=== PATIENT | female | born 1955 | race African-American/Black ===

== ENCOUNTER → 2016-09-10 | Outpatient (CLI) | payer MEDICARE ==
[~2016-09-10] MED LIST: ASPI-13 PO; CLON0.2T PO; CLOP75TA19 PO; FENO145T20 PO; FURO20TA6 PO; INSU100C8 SQ; INSU100V12 SQ; LABE300T PO; METF-200 PO; MULT1CAP47 PO; POTA-81 PO; POTA20PA17 PO; [UNRECOGNIZED DRUG - CODE] PO
== END ==
LOC: SS 20:00
PROVIDERS: ATTEND Internal Medicine
DX: G47.33 Obstructive sleep apnea (adult) (pediatric) (principal); G47.10 Hypersomnia, unspecified

== ENCOUNTER 2016-10-10 12:53 | Outpatient (CLI) | payer MEDICARE ==
[2016-10-10] VITALS (12 sets, daily range): BP systolic 142–206; BP diastolic 77–112; PULSE 64–84; RESP 15–17; TEMP 97.1–97.6; O2SAT 93–99; Ht 167.6 cm; Wt 109.3 kg
[~2016-10-10] VITALS: Ht 167.6 cm; Wt 109.3 kg
[~2016-10-10 12:53] MED LIST changes: +ASPI-557 PO; -CLON0.2T PO
[2016-10-10] MEDS ORDERED: CARV6.252 PO (13:33)
[2016-10-10] MEDS ORDERED: ASPI325T PO (13:33)
[2016-10-10] MEDS ORDERED: CLON0.3T PO (13:33)
[2016-10-10] MEDS ORDERED: BUME1TAB17 PO (13:33)
[2016-10-10] MEDS ORDERED: LISI40TA4 PO (13:33)
[2016-10-10] MEDS ORDERED: ALLO300T2 PO (13:33)
[2016-10-10] MEDS ORDERED: ALBU8.5H INH (13:33)
[2016-10-10] MEDS ORDERED: CALC0.25 PO (13:33)
[2016-10-10 13:43] LABS: BASOPHILS # (AUTO) 0.1 T/MM3 (0-0.2); BASOPHILS % (AUTO) 1.3 % (0-2); EOSINOPHILS # (AUTO) 0.1 T/MM3 (0-0.5); EOSINOPHILS % (AUTO) 2.3 % (0-4); HCT - HEMATOCRIT 39.5 % (36-46); IMMATURE GRANULOCYTE # (AUTO) 0.01 T/MM3 (0.00-0.03); IMMATURE GRANULOCYTE % (AUTO) 0.2 % (0.0-0.5); LYMPHOCYTES % (AUTO) 36.3 % (23-45); MEAN CORPUSCULAR HGB CONC(MCHC 32.9 GM/DL (31-37); MEAN CORPUSCULAR VOLUME 94.3 UM3 (80-100); MEAN PLATELET VOLUME 10.4 UM3 (9.4-12.4); MONOCYTES # (AUTO) 0.4 T/MM3 (0-0.8); NEUTROPHILS #(AUTO)-ABSOLUTE 2.9 T/MM3 (1.8-7.7); NEUTROPHILS % (AUTO) 52.9 % (33-66); RED BLOOD COUNT 4.19 M/MM3 (4.00-5.20); WBC - WHITE BLOOD COUNT 5.5 T/MM3 (4.5-11.0)
[2016-10-10 13:45] LABS: ANION GAP 11 MEQ/L (5-15); BUN/CREATININE RATIO 19 RATIO (6-26); CALCIUM 9.4 MG/DL (8.4-10.2); CHLORIDE 105 MEQ/L (98-107); CO2 - CARBON DIOXIDE 28 MEQ/L (22-30); CREATININE 1.3 MG/DL (0.7-1.2); GLOMERULAR FILTRATION RATE 41; GLUCOSE 106 MG/DL (65-110); SODIUM 144 MEQ/L (134-144)
--- NOTE | 2016-10-10 13:45 | NUR ---
ARRIVAL UPDATE PT ARRIVES AT 1300. PT IS A&OX3, SHE INSTRUCTED TO GET INTO A GOWN, EKG, IV AND BLOOD WORK IS DONE, ADMISSION QUESTIONS ARE ASKED, AND CONSENT FORMED IS SIGNED.
[2016-10-10] MEDS: NORMAL SALINE 1,000 ML IV SCH ×2 (13:57→19:05)
--- NOTE | 2016-10-10 14:07 | NUR ---
CM CM IN TO VISIT PATIENT, SHE IS A&O. FAMILY IS PRESENT AT BEDSIDE. PATIENT PLANS TO RETURN HOME, DENIES ANY DISCHARGE NEEDS. CM CONTACT INFORMATION PROVIDED. STACIE ERWIN. Addendum: 10/10/16 at 1408 by SHAHRAM SELF RN Amended: Links added.
[2016-10-10] MEDS ORDERED: CEFAZOLIN 1 GRAM INJECTION ONE ×2 (16:59→17:01)
[2016-10-10] MEDS ORDERED: WATER FOR INJECTION 20 ML ONE (16:59)
[2016-10-10] MEDS ORDERED: SALINE FLUSH *Sterile Field* 10ml SYRINGE ONE (17:00)
[2016-10-10] MEDS ORDERED: FENTANYL 100mcg/2ml INJECTION ONE (17:00)
[2016-10-10] MEDS ORDERED: MIDAZOLAM 2mg/2ml INJECTION ONE ×2 (17:00→17:51)
[2016-10-10] MEDS ORDERED: BACITRACIN INJ. 50,000 UNITS VL ONE (17:01)
[2016-10-10] MEDS ORDERED: LIDOCAINE 1% (10mg/ml) 30ml SDV ONE (17:01)
--- NOTE | 2016-10-10 17:18 | NUR ---
UPDATE PT HEADING TO SURGERY AT THIS TIME BY CART.
[2016-10-10] MEDS ORDERED: MAG-AL + SIM LIQUID 30 ML UDC PO PRN (18:15)
[2016-10-10] MEDS ORDERED: BISACODYL 5 MG E.C. TABLET PO PRN (18:15)
[2016-10-10] MEDS ORDERED: ALBUTEROL INH.SOLN. 2.5mg/3ml (0.083%) Neb. AEROSOL PRN (18:15)
[2016-10-10] MEDS ORDERED: ACETAMINOPHEN 325 MG TABLET PO PRN (18:15)
--- NOTE | 2016-10-10 18:40 | NUR ---
Update Pt arrived from surgery at this time. Pt is A&OX3, resp rate even and non labored. Incision site to chest is dry and intact. Pts initial BP WNL. will continue to monitor.
[2016-10-10] MEDS: CEFAZOLIN 1 G in NORMAL SALINE 100 ML IV SCH (19:05)
[2016-10-10] MEDS: CLONIDINE 0.3 MG PO SCH (20:17)
[2016-10-10] MEDS ORDERED: BUMETANIDE 1 MG TABLET PO SCH (21:00)
[2016-10-10] MEDS: POTASSIUM CHLORIDE 20 MEQ/15 ML PO SCH (21:00)
--- NOTE | 2016-10-10 21:00 | NUR ---
STATUS PT BLOOD PRESSURE ELEVATED AT THIS TIME, PT RATES PAIN A 10/10. PRN PAIN MEDICATION GIVEN. PT REFUSES TO TAKE OUR LEVIMIR AT THIS TIME, STATES SHE WILL TAKE IT TOMORROW AND WILL REPORT ANY CHANGES IN HOW SHE FEELS REGARDING BLOOD SUGAR. PT ALSO STATES THAT SHE NORMALLY CHECKS HER BGM AT HOME BUT REFUSES TO DO SO IN THE HOSPITAL. WILL CONTINUE TO MONITOR.
[2016-10-10] MEDS: OXYCODONE/APAP 5mg/325mg TABLET PO PRN (21:04)
--- NOTE | 2016-10-10 21:55 | NUR ---
UPDATE PT BLOOD PRESSURE WITHIN NORMAL LIMITS FOR HER AT THIS TIME. PT IS RESTING AND DENIES PAIN AT THIS TIME WELL. WILL CONTINUE TO MONITOR.
[2016-10-10] MEDS ORDERED: INSULIN DETEMIR 100 UNIT/ML SQ SCH (22:00)
[2016-10-11] MEDS: CEFAZOLIN 1 G in NORMAL SALINE 100 ML IV SCH (02:40)
[2016-10-11 04:00] VITALS: BP 95/66; PULSE 72; RESP 20; TEMP 97.6; O2SAT 96
[2016-10-11] MEDS: OXYCODONE/APAP 5mg/325mg TABLET PO PRN (04:05)
[2016-10-11 04:49] VITALS: BP 155/98; PULSE 67; RESP 18; TEMP 97.8; O2SAT 93
[2016-10-11 07:20] VITALS: BP 149/76; PULSE 63; RESP 22; TEMP 96.7; O2SAT 99
[2016-10-11 07:21] VITALS: PULSE 63; RESP 22
[2016-10-11] MEDS ORDERED: CARVEDILOL 6.25 MG TABLET PO SCH (08:00)
[2016-10-11] MEDS ORDERED: CARVEDILOL 3.125 MG PO SCH (08:00)
[2016-10-11] MEDS: CLONIDINE 0.3 MG PO SCH (08:29)
[2016-10-11] MEDS: POTASSIUM CHLORIDE 20 MEQ/15 ML PO SCH (08:29)
[2016-10-11] MEDS ORDERED: OXYC1TAB8 PO (08:37)
[2016-10-11] MEDS ORDERED: MINO100C43 PO (08:37)
[2016-10-11] MEDS ORDERED: POTASSIUM CHLORIDE PO SCH (08:46)
[2016-10-11] MEDS ORDERED: CALCITRIOL 0.25 MCG PO SCH (09:00)
[2016-10-11] MEDS ORDERED: --POM--ASPIRIN 325 MG TABLET PO SCH (09:00)
[2016-10-11] MEDS ORDERED: --POM--ALLOPURINOL 300 MG TABLET PO SCH (09:00)
[2016-10-11] MEDS ORDERED: --POM--LISINOPRIL 40 MG TABLET PO SCH (09:00)
[2016-10-11] MEDS ORDERED: MINOCYCLINE 100 MG CAPSULE PO SCH (09:00)
[2016-10-11] MEDS ORDERED: --POM--BUMETANIDE 1 MG TABLET PO SCH (09:00)
--- NOTE | 2016-10-11 09:11 | DI ---
Indication: ITS.REASON: ppm Procedure: CHEST 1 VIEW: Encounter: Initial Comparison: 08/16/2016 Technique: A single portable AP chest radiograph was obtained. Findings: Life support devices: Interval placement of a left pectoral dual-chamber pacer/ICD device. Lungs and airways: Normal lung volumes. Redemonstration of bullous emphysematous changes within the medial left lung apex. No focal airspace consolidation. Pulmonary vascular and interstitial prominence. Pleura: No pleural effusion or definite pneumothorax. Heart and mediastinum: Cardiomegaly. Aortic atherosclerosis. Osseous structures and soft tissues: No acute osseous abnormality is seen. Impression: 1. Interval placement of a left pectoral dual-chamber pacer/ICD device. 2. Redemonstration of bullous emphysematous changes within the medial left lung apex without pneumothorax identified. 3. Cardiomegaly and aortic atherosclerosis with pulmonary vascular and interstitial prominence suggesting mild congestive changes and interstitial edema. .
--- NOTE | 2016-10-11 09:11 | DI ---
Indication: ITS.REASON: ppm Procedure: CHEST, PA LATERAL: Encounter: Subsequent Comparison: 10/10/2016, 08/16/2016 Technique: PA and lateral radiographs of the chest were obtained. Findings: Life support devices: Unchanged left pectoral dual-chamber pacer/ICD device. Lungs and airways: Normal lung volumes. No focal airspace consolidation. Pulmonary vascular and interstitial prominence. Pleura: Bullous emphysematous changes again seen within the medial left lung apex with no definite pleural effusion or pneumothorax appreciated. Heart and mediastinum: Cardiomegaly. Aortic atherosclerosis. Osseous structures and soft tissues: No acute osseous abnormality is seen. Degenerative changes of the shoulders and thoracic spine. Impression: 1. Unchanged left pectoral dual-chamber pacer/ICD device. 2. Redemonstration of bullous emphysematous changes within the medial left lung apex with no definite pneumothorax appreciated. 3. Cardiomegaly and aortic atherosclerosis with pulmonary vascular and interstitial prominence suggesting mild congestive changes/interstitial edema. .
[2016-10-11] MEDS: NORMAL SALINE 1,000 ML IV SCH (09:40)
--- NOTE | 2016-10-11 11:23 | NUR ---
Discharge Pt discharged at this time via wheelchair through the ER entrance in the company of an adult. IV catheter DC'd prior to by SN Tha. Wristband removed. Pts home medications were returned to Pt. Prescription for pain medication was given to Pt to take to preferred pharmacy. Sling in place to the left arm at the time of discharge. Discharge packet and instructions given to Pt. This RN discussed activity, diet, restrictions, medications, incision care, and follow up appt with Pt. Pt verbalized understanding.
[2016-10-11] MEDS ORDERED: INSULIN ASPART 100 UNIT/ML SQ SCH ×2 (12:00→17:30)
--- NOTE | 2016-10-12 15:41 | NUR ---
CM CM LVM
--- NOTE | 2016-10-13 16:07 | NUR ---
CM CM LVM
== END 2016-10-11 11:23 | disposition home or self-care (01) ==
LOC: CATH 12:53 → SRG 12:56 → CATH 10-11 11:23
PROVIDERS: ATTEND Internal Medicine Cardiovascular Disease
DX: I42.9 Cardiomyopathy, unspecified (principal); I25.10 Atherosclerotic heart disease of native coronary artery without angina pectoris; J81.1 Chronic pulmonary edema; I35.1 Nonrheumatic aortic (valve) insufficiency; I10 Essential (primary) hypertension; E78.2 Mixed hyperlipidemia; E11.9 Type 2 diabetes mellitus without complications; F17.220 Nicotine dependence, chewing tobacco, uncomplicated; Z79.1 Long term (current) use of non-steroidal anti-inflammatories (NSAID); Z79.82 Long term (current) use of aspirin; Z79.4 Long term (current) use of insulin; Z79.899 Other long term (current) drug therapy; Z95.5 Presence of coronary angioplasty implant and graft
CPT/HCPCS: 33249; 71010; 71020; 80048; 85025; 93005; 93641; A9270; C1721; C1895; C1898; J0690; J2250; J3010; J7030; J7050; L3650

== ENCOUNTER → 2016-11-22 | Outpatient (CLI) | payer MEDICARE ==
[~2016-11-22] MED LIST changes: +ALBU8.5H INH; +ALLO300T2 PO; -ASPI-13 PO; -ASPI-557 PO; +ASPI325T PO; +BUME1TAB17 PO; +CALC0.25 PO; +CARV6.252 PO; +CLON0.3T PO; -CLOP75TA19 PO; -FENO145T20 PO; -FURO20TA6 PO; -LABE300T PO; +LISI40TA4 PO; -METF-200 PO; +MINO100C43 PO; +OXYC1TAB8 PO; -POTA-81 PO; -[UNRECOGNIZED DRUG - CODE] PO
[2016-11-22 09:29] LABS: HCT - HEMATOCRIT 38.3 % (36-46); HGB - HEMOGLOBIN 12.7 GM/DL (12-16); MEAN CORPUSCULAR HGB 30.3 UUG (26-34); MEAN CORPUSCULAR HGB CONC(MCHC 33.2 GM/DL (31-37); MEAN CORPUSCULAR VOLUME 91.4 UM3 (80-100); MEAN PLATELET VOLUME 9.9 UM3 (9.4-12.4); RED BLOOD COUNT 4.19 M/MM3 (4.00-5.20); WBC - WHITE BLOOD COUNT 6.7 T/MM3 (4.5-11.0)
[2016-11-22 09:37] LABS: ANION GAP 14 MEQ/L (5-15); BUN/CREATININE RATIO 21 RATIO (6-26); CALCIUM 9.3 MG/DL (8.4-10.2); CHLORIDE 101 MEQ/L (98-107); CO2 - CARBON DIOXIDE 29 MEQ/L (22-30); CREATININE 1.1 MG/DL (0.7-1.2); GLOMERULAR FILTRATION RATE 50; GLUCOSE 233 MG/DL (65-110); POTASSIUM 3.6 MEQ/L (3.6-5); SODIUM 144 MEQ/L (134-144)
[2016-11-22 09:45] LABS: PROBNP 13000 PG/ML (0-175)
[2016-11-22 09:58] LABS: BASOPHILS # (MANUAL) 0.1 T/MM3 (0-0.2); EOSINOPHILS # (MANUAL) 0.1 T/MM3 (0-0.5); LYMPHOCYTES # (MANUAL) 1.2 T/MM3 (1-4.8); MONOCYTES # (MANUAL) 0.7 T/MM3 (0-0.8); NEUTROPHILS #(MANUAL)-ABSOLUTE 4.6 T/MM3 (1.8-7.7); TOTAL CELLS COUNTED 100 %
--- NOTE | 2016-11-22 09:58 | DI ---
INDICATION: ITS.REASON: R06.02 Shortness of breath PROCEDURE: CHEST 2-VIEWS UPRIGHT (PA \T\ LAT) Encounter: Initial COMPARISON: October 11, 2016 FINDINGS: Bullous emphysema again noted in the medial left apex. Left cardiac pacemaker defibrillator is stable in position. Chronically increased lung markings in the right lung are again seen. No pneumothorax or consolidative pneumonia. No pleural effusion appreciated. Cardiac silhouette remains moderately enlarged. Mediastinal contours are stable. Impression: No pneumonia. Chronically increased markings in the right lung could represent chronic mild pulmonary edema. .
== END ==
LOC: IMA 09:12
PROVIDERS: ATTEND Internal Medicine
DX: R06.02 Shortness of breath (principal); R91.8 Other nonspecific abnormal finding of lung field
CPT/HCPCS: 36415; 80048; 83880; 84145; 85007; 85027

== ENCOUNTER 2017-05-17 14:41 | Inpatient (IN) ==
[2017-05-17 15:06] VITALS: BMI 40.9
[2017-05-17] MEDS ORDERED: SALINE FLUSH 10ml SYRINGE IV PRN (15:12)
[2017-05-17] MEDS ORDERED: BUMETANIDE 2.5mg/10ml INJECTION IVP ONE (15:19)
[2017-05-17] MEDS: BUMETANIDE DRIP 25 MG in RTU-SALINE 100 ML IV SCH (16:32)
--- OUTSIDE RECORDS SUMMARY | 2017-05-17 16:32 | External Medical Summary ---
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 Problem Mixed hyperlipidemia 272.2 Active Assessment Hypopotassemia 276.8 Active Problem Congestive heart failure, 428.0 Active unspecified Problem Hypertension, benign 401.1 Active Medications Medication Code Code Instructions Start End Date Status Dosage [place] [address]-03 100 UNIT/ML November 03, Active 20 units -05 Subcutaneous 2013 [place] [address]-35 10 MCG Vaginal Mar 10, Active 1 tablet 76-03 Two times a Week 2013 Tricor NDC 19040-55 145 MG Orally Active 1 tablet 23-90 Once a day Lovastatin NDC 82397-92 40 MG Orally Active 2 tablet 28-06 Once a day with a meal Metformin HCl NDC 94058-57 500 MG Orally Active 1 tablet 48-01 Twice a day with meals Lisinopril NDC 60479-59 40 MG Orally Active 1 tablet 70-01 Once a day Plavix NDC 70916-43 75 MG Orally Active 1 tablet 03-99 Once a day Verapamil HCl CR NDC 34862-96 240 MG Orally Active 1 tablet in 80-00 Once a day the morning with food Lopressor NDC 10276-61 50 MG Orally Active 1 tablet 58-05 Once a day Labetalol HCl NDC 51991-00 200 MG Orally Active as directed 65-00 BID Furosemide NDC 25400-00 160 mg Orally Active 1 tablet 75-32 daily Polyethylene NDC 89545-37 3350 U orally Active as directed Glycol 09-05 daily prn constipation Aleve NDC 48590-72 Orally PRN Active 1 tablet as 80-16 [place] [address]-16 100 UNIT/ML Active 7 units at 07-12 Subcutaneous lunch, 5 units at supper Procedures Procedure Coding System Code Date COMPREHENSIVE METABOLIC PANEL CPT-4 65580 May 26, 2014 Vital Signs Date/Time: May 14, 2014 Height 66 inches Weight 231.12 lbs Temperature 98.2 F Blood Pressure Diastolic 84 mm Hg Blood Pressure Systolic 158 mm Hg Cardiac Monitoring Heart Rate 92 Beats per Minute BMI 37.30 Index Respiratory Rate 20 per Minute Results Name Result Date Reference Range Unit Comprehensive Metabolic Panel (CMP) Summary Purpose [employer] Submission
--- OUTSIDE RECORDS SUMMARY | 2017-05-17 16:32 | External Medical Summary ---
:1955 Author Organization [employer] Care Team Providers Name Role Phone Keturah Francois Provider Role Unavailable Allergies No Known Allergies Problems Problem Type Condition Code Onset Dates Condition Status Problem Diabetes mellitus without mention of 250.02 Active complication, type II or unspecified type, uncontrolled Problem Coronary atherosclerosis of [place] 414.01 Active coronary artery Problem Postmenopausal atrophic vaginitis 627.3 Active Problem Mixed hyperlipidemia 272.2 Active Problem Proteinuria 791.0 Active Problem Congestive heart failure, 428.0 Active unspecified Problem Hypertension, benign 401.1 Active Medications No Known Medications Results No Known Results Summary Purpose [employer] Submission
--- OUTSIDE RECORDS SUMMARY | 2017-05-17 16:32 | External Medical Summary ---
:1955 Author Organization [employer] Care Team Providers Name Role Phone Keturah Francois Provider Role Unavailable Allergies, Adverse Reactions, Alerts Substance Reaction Event Type Bactrim hives Drug Allergy almonds Info Not Available Non Drug Allergy brazil nuts Info Not Available Non Drug Allergy Problems Problem Type Condition ICD-9 Code Onset Dates Condition Status Assessment Congestive heart failure, 428.0 Active unspecified Assessment Diabetes mellitus without 250.02 Active mention of complication, type II or unspecified type, uncontrolled Assessment Coronary atherosclerosis of 414.01 Active [place] coronary artery Problem Diabetes mellitus without 250.02 Active mention of complication, type II or unspecified type, uncontrolled Problem Coronary atherosclerosis of 414.01 Active [place] coronary artery Problem 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 Problem Mixed hyperlipidemia 272.2 Active Problem Proteinuria 791.0 Active Problem Congestive heart failure, 428.0 Active unspecified Problem Hypertension, benign 401.1 Active Assessment Other acquired deformity of toe 735.8 Active Assessment Corns and callosities 700 Active Assessment Mixed hyperlipidemia 272.2 Active Assessment Hypertension, benign 401.1 Active Medications Medication Code Code Instructions Start End Date Status Dosage System Date NovoLog [facility] 19121-89 100 UNIT/ML 7 units at 01-11 Subcutaneous lunch, 5 [place] [address]-49 Orally PRN 1 tablet as 00-25 [place] [address]-14 500 MG Orally 1 tablet 48-01 Twice a day with meals Plavix NDC 52311-68 75 MG Orally 1 tablet 03-99 [place] [address]-13 300 MG Orally as directed 66-60 [place] [address]-86 40 MG Orally 1 tablet 70-01 Once a day Clonidine HCl [facility] 14796-81 0.1 MG Orally 1 tablet at 27-10 [place] [address]-57 40 MG Orally 2 tablet 28-06 Once a day with a meal Levemir Flexpen [facility] 34274-74 100 UNIT/ML March 24, 30 units 39-10 Subcutaneous qhs 2014 Potassium [facility] 78195-27 20 MEQ Orally Dec , Sept 20, 1 packet Chloride 56-01 Once a day 2013 2014 Furosemide [facility] 79993-36 80 MG Orally 1 tablet 07-26 [place] [address]-45 3350 U orally as directed Glycol 09- daily prn constipation NovoLog Flexpen [facility] 59951-73 100 UNIT/ML September 22 units 39-10 Subcutaneous BID 2014 Vagifem [facility] 08662-98 10 MCG Vaginal Mar 10, tablet 76-03 Two times a Week 2013 Procedures Procedure Coding System Code Date OFFICE VISIT, EST-MOD. COMPLEXITY (25 MIN) CPT-4 67604 September 22, 2014 [facility] visit Established Patient CPT-4 G0467 September 22, 2014 Vital Signs Date/Time: September 22, 2014 Height 66 in Weight 231.8 lbs Temperature 98.5 F Blood Pressure Diastolic 76 mm Hg Blood Pressure Systolic 132 mm Hg Cardiac Monitoring Heart Rate 78 /min BMI 37.41 Index Respiratory Rate 20 /min Results No Known Results Summary Purpose [employer]ClinicalWorks Submission
--- OUTSIDE RECORDS SUMMARY | 2017-05-17 16:32 | External Medical Summary ---
:1955 Author Organization [facility] [facility] Care Team Providers Name Role Phone Mirna Celis Provider Role Unavailable Allergies No Known Allergies Problems Problem Type Condition Code Onset Dates Condition Status Problem Proteinuria 791.0 Active Problem Hypertension, benign 401.1 Active Problem Mixed hyperlipidemia 272.2 Active Problem Atherosclerotic heart disease of I25.10 Active [place] coronary artery without angina pectoris Problem Edema, unspecified R60.9 Active Problem Tobacco use disorder 305.1 Active Problem Unspecified atherosclerosis of I70.209 Active [place] arteries of extremities, unspecified extremity Problem CKD (chronic kidney disease) stage N18.3 Active 3, GFR 30-59 ml/min Problem Coronary atherosclerosis of [place] 414.01 Active coronary artery Problem Congestive heart failure, 428.0 Active unspecified Problem Postmenopausal atrophic vaginitis 627.3 Active Problem Diabetes mellitus without mention 250.02 Active of complication, type II or unspecified type, uncontrolled Problem Nicotine dependence, unspecified, F17.200 Active uncomplicated Problem Postmenopausal atrophic vaginitis N95.2 Active Problem Other hammer toe(s) (acquired), M20.40 Active unspecified foot Problem Corns and callosities L84 Active Problem Essential (primary) hypertension I10 Active Problem 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
--- OUTSIDE RECORDS SUMMARY | 2017-05-17 16:32 | External Medical Summary ---
:1955 Author Organization [employer] Care Team Providers Name Role Phone Lalita, Mirna Provider Role Unavailable Allergies, Adverse Reactions, Alerts Substance Reaction Event Type Bactrim hives Drug Allergy almonds Info Not Available Non Drug Allergy brazil nuts Info Not Available Non Drug Allergy Problems Problem Type Condition ICD-9 Code Onset Dates Condition Status Assessment Coronary atherosclerosis of 414.01 Active [place] coronary artery Problem Proteinuria 791.0 Active Assessment Diabetes mellitus without 250.02 Active mention of complication, type II or unspecified type, uncontrolled Problem 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 Problem Diabetes mellitus without 250.02 Active mention of complication, type II or unspecified type, uncontrolled Problem Tobacco use disorder 305.1 Active Problem Hypertension, benign 401.1 Active Problem Mixed hyperlipidemia 272.2 Active Problem Coronary atherosclerosis of 414.01 Active [place] coronary artery Problem Congestive heart failure, 428.0 Active unspecified Assessment Colon cancer screening V76.51 Active Assessment Mixed hyperlipidemia 272.2 Active Assessment Other screening breast V76.19 Active examination Assessment Hypertension, benign 401.1 Active Assessment Impacted cerumen 380.4 Active Assessment Congestive heart failure, 428.0 Active unspecified Medications Medication Code Code Instructions Start End Date Status Dosage System Date Metformin HCl [facility] 44455-51 500 MG Orally 1 tablet 48-01 Twice a day with meals Potassium [facility] 34653-82 20 MEQ Orally Jun 02Mar 20, 1 packet Chloride 56-01 Once a day 2013 2014 Lisinopril [facility] 23758-71 40 MG Orally 1 tablet 70-01 [place] [address]-25 40 MG Orally 2 tablet 28-06 Once [place] [address]-33 75 MG Orally 1 tablet 03-99 Once a day Labetalol HCl [facility] 38029-45 300 MG Orally as directed 66-60 [place] [address]-45 0.1 MG Orally 1 tablet at 27-10 [place] [address]-30 Orally PRN 1 tablet [place] 00-25 [place] [address]-25 80 MG Orally 1 tablet -25 Twice a day NovoLog Flexpen NDC 12582-75 100 UNIT/ML September 22 units 39-10 Subcutaneous BID 2014 Polyethylene NDC 93763-32 3350 U orally as directed Glycol 09-05 daily prn constipation Tricor NDC 83871-65 145 MG Orally 1 tablet 23-90 [place] [address]-48 100 UNIT/ML September 22 units 39-10 Subcutaneous qhs 2014 Procedures Procedure Coding System Code Date [facility] visit Established Patient CPT-4 G0467 Feb 24, 2015 OFFICE VISIT, EST-MOD. COMPLEXITY (25 MIN) CPT-4 57121 Feb 24, 2015 HEMOGLOBIN A1C, IN HOUSE CPT-4 61264 Feb 24, 2015 LIPID PANEL CPT-4 20406 Feb 24, 2015 CMP CPT-4 45228 Feb 24, 2015 Vital Signs Date/Time: Feb 24, 2015 Height 66 in Weight 233.12 lbs Temperature 98.4 F Blood Pressure Diastolic 72 mm Hg Blood Pressure Systolic 130 mm Hg Cardiac Monitoring Heart Rate 74 /min BMI 37.62 Index Respiratory Rate 15 /min Results Name Result Date Reference Range Unit Abnormality Flag In House Lipid Panel Summary Purpose eClinicalWorks Submission
[2017-05-18] MEDS: CARVEDILOL 6.25 MG TABLET PO SCH ×2 (00:16→09:19)
[2017-05-18] MEDS: INSULIN DETEMIR 100 UNIT/ML SQ SCH ×2 (00:19→22:16)
[2017-05-18] MEDS ORDERED: ALBUTEROL 2.5mg/3ml (0.083%) NEB AEROSOL PRN (00:51)
[2017-05-18] MEDS ORDERED: ONDANSETRON 4 MG/2 ML INJECTION IVP PRN (00:58)
[2017-05-18] MEDS ORDERED: NITROGLYCERIN 0.4 MG SUBLINGUAL TABLET SL PRN (00:58)
[2017-05-18] MEDS ORDERED: TRAMADOL 50 MG TABLET PO PRN (00:59)
[2017-05-18] MEDS ORDERED: INSULIN ASPART U SQ SCH ×2 (01:00→12:00)
[2017-05-18] MEDS ORDERED: ACETAMINOPHEN 325 MG TABLET PO PRN (01:02)
[2017-05-18] MEDS ORDERED: FALL RISK - PHARMACY CONSULT XX ONE (05:38)
[2017-05-18] MEDS: OMEPRAZOLE 20 MG CAPSULE PO SCH (06:06)
--- NOTE | 2017-05-18 08:41 | XRay Report ---
Indication: CHF PROCEDURE: XR chest 1V: Encounter: Initial Comparison: 11/22/2016 Findings: Bullous emphysema in the left apex. Motion artifact. Increased prominence of the pulmonary vascular markings, worsened from the prior study. No gross pneumothorax or definite effusion. Cardiac silhouette remains severely enlarged. Left pacemaker. Mediastinal contours are stable. Impression: Moderate to severe pulmonary edema, likely due to CHF. .
--- NOTE | 2017-05-18 08:43 | XRay Report ---
INDICATION: chf PROCEDURE: CHEST 2-VIEWS UPRIGHT (PA & LAT) Encounter: Initial COMPARISON: May 17, 2017 and November 22, 2016 FINDINGS: Pulmonary vascular prominence is again noted and slightly improved. Bullous emphysema on the left. No pneumothorax or significant pleural fluid. Cardiac silhouette is slightly smaller. Mediastinal contours are stable. Left pacemaker defibrillator. Impression: Improving congestive failure. The appearance is close to the patient's baseline appearance. .
[2017-05-18] MEDS ORDERED: MULTIVITAMINS W MINERALS PO SCH (09:00)
[2017-05-18] MEDS ORDERED: POTASSIUM CHLORIDE 40 MEQ PO SCH (09:00)
[2017-05-18] MEDS ORDERED: BUMETANIDE 1 MG TABLET PO SCH (09:00)
[2017-05-18] MEDS: ALLOPURINOL 300 MG PO SCH (09:17)
[2017-05-18] MEDS: CALCITRIOL 0.25 MCG PO SCH (09:17)
[2017-05-18] MEDS: POM LISINOPRIL 40 MG TABLET PO SCH (09:17)
[2017-05-18] MEDS: CLONIDINE 0.1 MG PO SCH ×2 (09:17→22:17)
[2017-05-18] MEDS: ASPIRIN 325 MG PO SCH (09:17)
[2017-05-18] MEDS: MULTI-VITAMIN + MINERAL TABLET PO SCH (09:18)
[2017-05-18] MEDS: MINOCYCLINE 100 MG CAPSULE PO SCH ×2 (09:18→22:16)
[2017-05-18] MEDS: POM INSULIN ASPART 100unit/ml INJECTION SQ SCH ×2 (12:27→17:43)
--- NOTE | 2017-05-18 15:07 | Cardiology Progress Note ---
<Edda Richmond - Last Filed: 05/18/17 19:04> Subjective Principal diagnosis: Acute on chronic systolic and diastolic heart failure Interval history: Sendy is seen in follow up today for Acute on chronic systolic and diastolic heart failure, which she was admitted from the clinic for IV diuresis yesterday. She remains on Bumex drip and has conversational dyspnea. She denies chest pain or pressure, palpitations, lightheadedness. Exam Vital signs: Temperature 95.6 F L 05/18/17 11:06 Pulse Rate 59 L 05/18/17 11:06 Respiratory Rate 20 05/18/17 11:06 Blood Pressure 157/84 H 05/18/17 11:06 Pulse Oximetry 99 05/18/17 11:06 - Constitutional mild distress, morbidly obese, cooperative - Routine HEENT Exam Head: Present: normocephalic ENT: Present: mucous membranes moist - Routine Neck Exam Present: JVD. Absent: carotid bruit - Routine Chest/Breast/Axilla Exam Chest wall: Absent: tenderness - Routine Respiratory Exam Present: rales (bibasilar), diminished air movement. Absent: CTA bilaterally - Routine Cardiovascular Exam Present: RRR, no murmur - Routine Abdominal Exam Present: soft, normoactive bowel sounds - Routine Extremities Exam Present: edema - Routine Skin Exam Present: intact, dry, warm - Routine Neurological Exam Present: alert, oriented X3 - Routine Psychiatric Exam Present: normal affect, normal thought process - Additional findings Additional findings: Acetaminophen (Tylenol) 325 - 650 mg PO Q5H PRN PRN Reason: Discomfort Albuterol Sulfate (Proventil Neb (0.083%)) 2.5 mg AEROSOL Q4H PRN PRN Reason: Asthma Allopurinol (Zyloprim) 300 mg PO DAILY [facility] Last Admin: 05/18/17 09:17 Dose: 300 mg Aspirin (Asa) 325 mg PO DAILY [facility] Last Admin: 05/18/17 09:17 Dose: 325 mg Calcitriol (Rocaltrol) 0.25 mcg PO DAILY [facility] Last Admin: 05/18/17 09:17 Dose: 0.25 mcg Carvedilol (Coreg) 6.25 mg PO BIDWM [facility] Clonidine HCl (Catapres) 0.3 mg PO BID [facility] Last Admin: 05/18/17 09:17 Dose: 0.3 mg Bumetanide 25 mg/ Sodium (Chloride) 100 mls @ 4 mls/hr IV .Q24H [facility] Last Admin: 05/17/17 16:32 Dose: 4 mls/hr Insulin Aspart (Novolog) 7 unit SQ NOON [facility] Last Admin: 05/18/17 12:27 Dose: 7 unit Insulin Aspart (Novolog) 5 unit SQ WS [facility] Insulin Detemir (Levemir) 30 unit SQ HS [facility] Last Admin: 05/18/17 00:19 Dose: 30 unit Lisinopril (Prinivil) 40 mg PO DAILY [facility] Last Admin: 05/18/17 09:17 Dose: 40 mg Minocycline HCl (Minocin) 100 mg PO BID [facility] Last Admin: 05/18/17 09:18 Dose: 100 mg Multivitamins/Minerals (Therapeutic - M) 1 tab PO DAILY [facility] Last Admin: 05/18/17 09:18 Dose: 1 tab Nitroglycerin (Nitrostat) 0.4 mg SL Q5M PRN PRN Reason: Chest pain Last Admin: 05/18/17 01:12 Dose: 0.4 mg Omeprazole (Prilosec) 20 mg PO ACB [facility] Last Admin: 05/18/17 06:06 Dose: 20 mg Ondansetron HCl (Zofran) 4 mg IVP Q6H PRN PRN Reason: Nausea &/or vomiting Oxycodone/Acetaminophen (Percocet 5/325) 1 tab PO Q6H PRN PRN Reason: P Potassium Chloride (K-Dur) 40 meq PO BIDWM [facility] Last Admin: 05/18/17 09:16 Dose: 40 meq Sodium Chloride (Iv Flush) 10 - 80 ml IV PRN PRN PRN Reason: Flushing Tramadol HCl (Ultram) 50 mg PO Q6H PRN PRN Reason: Pain Last Admin: 05/18/17 01:23 Dose: 50 mg Results 05/18/17 04:43 05/18/17 04:43 Cardiac Enzymes 05/17/17 05/18/17 Range/Units 16:19 04:43 AST 15 (14-36) U/L Troponin I < 0.012 (0-0.12) ng/ml B-Natriuretic Peptide 9890 H (0-175) pg/mL Coagulation 05/17/17 Range/Units 16:19 B-Natriuretic Peptide 9890 H (0-175) pg/mL CBC 05/17/17 05/18/17 Range/Units 16:19 04:43 WBC 5.5 5.1 (4.5-11.0) T/MM3 RBC 4.43 3.87 L (4.00-5.20) M/MM3 Hgb 13.2 11.6 L D (12-16) GM/DL Hct 41.5 36.5 D (36-46) % Plt Count 268 236 (130-400) T/MM3 Neut # (Auto) 2.6 2.7 (1.8-7.7) T/MM3 Lymph # (Auto) 2.4 1.7 (1-4.8) T/MM3 Edgar # (Auto) 0.3 0.4 (0-0.8) T/MM3 Eos # (Auto) 0.2 0.2 (0-0.5) T/MM3 Baso # (Auto) 0.1 0.1 (0-0.2) T/MM3 Comprehensive Metabolic Panel 05/17/17 05/18/17 Range/Units 16:19 04:43 Sodium 144 143 (134-144) MEQ/L Potassium 4.0 3.0 L D (3.6-5) MEQ/L Chloride 105 104 (98-107) MEQ/L Carbon Dioxide 27 29 (22-30) MEQ/L BUN 26.0 H 23.0 H (7-17) MG/DL Creatinine 1.2 1.2 (0.7-1.2) MG/DL Glucose 84 162 H (65-110) MG/DL Calcium 9.3 8.7 (8.4-10.2) MG/DL AST 15 (14-36) U/L ALT 22 (9-52) U/L Alkaline Phosphatase 109 (38-126) U/L Total Protein 7.7 (6.3-8.2) G/DL Albumin 3.8 (3.5-5.0) G/DL Intake and Output 05/18/17 05/18/17 05/18/17 06:59 14:59 22:59 Intake Total 650 / 650 848 / 848 Output Total 1575 / 1575 1400 / 1400 Balance -925 / -925 -552 / -552 Intake: Oral 650 / 650 848 / 848 Output: Urine 1575 / 1575 1400 / 1400 Other: Urine Appearance Clear Clear Urine Color Yellow Yellow Urine Odor Normal Normal # Voids 2 Weight 249 lb 12.54 oz Patient Weight 05/19/17 06:59 Weight 249 lb 12.54 oz Laboratory Results - last 24 hr 05/17/17 05/17/17 05/17/17 16:19 16:19 22:02 WBC 5.5 RBC 4.43 Hgb 13.2 Hct 41.5 MCV 93.7 MCH 29.8 MCHC 31.8 RDW Std Deviation 51.2 H Plt Count 268 MPV 9.6 Immature Gran % (Auto) 0.0 Neut % (Auto) 46.8 Lymph % (Auto) 43.6 Edgar % (Auto) 5.4 Eos % (Auto) 3.1 Baso % (Auto) 1.1 Neut # (Auto) 2.6 Lymph # (Auto) 2.4 Edgar # (Auto) 0.3 Eos # (Auto) 0.2 Baso # (Auto) 0.1 Abs Immat Gran (auto) 0.00 Turbidity < 20 Sodium 144 Potassium 4.0 Chloride 105 Carbon Dioxide 27 Anion Gap 12 BUN 26.0 H Creatinine 1.2 GFR Calculation 45 BUN/Creatinine Ratio 22 Glucose 84 Glucometer 287 Calculated Osmolality 281 H Calcium 9.3 Magnesium 2.2 Total Bilirubin 0.50 Icterus Index < 2 AST 15 ALT 22 Alkaline Phosphatase 109 Troponin I B-Natriuretic Peptide 9890 H Total Protein 7.7 Albumin 3.8 Globulin 3.9 H Albumin/Globulin Ratio 1.0 L Specimen Hemolysis < 15 05/18/17 05/18/17 05/18/17 04:43 04:43 06:02 WBC 5.1 RBC 3.87 L Hgb 11.6 L D Hct 36.5 D MCV 94.3 MCH 30.0 MCHC 31.8 RDW Std Deviation 51.3 H Plt Count 236 MPV 9.8 Immature Gran % (Auto) 0.2 Neut % (Auto) 53.7 Lymph % (Auto) 33.3 Edgar % (Auto) 8.1 Eos % (Auto) 3.3 Baso % (Auto) 1.4 Neut # (Auto) 2.7 Lymph # (Auto) 1.7 Edgar # (Auto) 0.4 Eos # (Auto) 0.2 Baso # (Auto) 0.1 Abs Immat Gran (auto) 0.01 Turbidity < 20 Sodium 143 Potassium 3.0 L D Chloride 104 Carbon Dioxide 29 Anion Gap 10 BUN 23.0 H Creatinine 1.2 GFR Calculation 45 BUN/Creatinine Ratio 19 Glucose 162 H Glucometer 135 Calculated Osmolality 283 H Calcium 8.7 Magnesium 2.1 Total Bilirubin Icterus Index < 2 AST ALT Alkaline Phosphatase Troponin I < 0.012 B-Natriuretic Peptide Total Protein Albumin Globulin Albumin/Globulin Ratio Specimen Hemolysis < 15 05/18/17 10:25 WBC RBC Hgb Hct MCV MCH MCHC RDW Std Deviation Plt Count MPV Immature Gran % (Auto) Neut % (Auto) Lymph % (Auto) Edgar % (Auto) Eos % (Auto) Baso % (Auto) Neut # (Auto) Lymph # (Auto) Edgar # (Auto) Eos # (Auto) Baso # (Auto) Abs Immat Gran (auto) Turbidity Sodium Potassium Chloride Carbon Dioxide Anion Gap BUN Creatinine GFR Calculation BUN/Creatinine Ratio Glucose Glucometer 161 Calculated Osmolality Calcium Magnesium Total Bilirubin Icterus Index AST ALT Alkaline Phosphatase Troponin I B-Natriuretic Peptide Total Protein Albumin Globulin Albumin/Globulin Ratio Specimen Hemolysis - Imaging and Cardiology Imaging & Cardiology Narrative: Date of Exam: 05/18/17 Ordering Provider: Edda Richmond APRN Type of Exam(s): XR chest 2V Reason for Exam(s): chf INDICATION: chf PROCEDURE: CHEST 2-VIEWS UPRIGHT (PA & LAT) Encounter: Initial COMPARISON: May 17, 2017 and November 22, 2016 FINDINGS: Pulmonary vascular prominence is again noted and slightly improved. Bullous emphysema on the left. No pneumothorax or significant pleural fluid. Cardiac silhouette is slightly smaller. Mediastinal contours are stable. Left pacemaker defibrillator. Impression: Improving congestive failure. The appearance is close to the patient's baseline appearance. Assessment and Plan - Assessment and Plan (1) Acute on chronic combined systolic and diastolic congestive heart failure Status: Acute Continue Bumex drip today at 1mg/hr - replace potassium - monitor renal and electrolytes (2) Cardiomyopathy Status: Chronic Continue Coreg 6.25mg BID (3) Atherosclerotic heart disease of [place] coronary artery without angina pectoris Status: Chronic Continue Aspirin (4) Nonrheumatic aortic valve insufficiency Status: Chronic (5) Essential (primary) hypertension Status: Chronic Suboptimal control - add amlodipine 5mg daily - continue home Clonidine and Lisinopril. (6) Mixed hyperlipidemia Status: Chronic (7) Type 2 diabetes mellitus without complications Status: Chronic PCP manages (8) Chronic kidney disease Status: Chronic - Assessment and Plan 05/18/17 Acute on chronic systolic and diastolic heart failure: Continue Bumex drip today at 1mg/hr - replace potassium - monitor renal and electrolytes CM: continue Coreg CAD: continue Aspirin HTN: Suboptimal control - add amlodipine 5mg daily - continue home Clonidine and Lisinopril. Hospital Course Summary Disclaimer: The visit summary below is not to be considered part of the above Progress Note. <Pedro Narvaez - Last Filed: 05/22/17 07:40> Exam Vital signs: Temperature 96.3 F L 05/21/17 10:27 Pulse Rate 67 05/21/17 10:31 Respiratory Rate 17 05/21/17 10:27 Blood Pressure 160/87 H 05/21/17 10:31 Pulse Oximetry 97 05/21/17 10:27 Results 05/21/17 04:31 05/21/17 04:31 Cardiac Enzymes 05/21/17 Range/Units 04:29 B-Natriuretic Peptide 2880 H (0-175) pg/mL Coagulation 05/21/17 Range/Units 04:29 B-Natriuretic Peptide 2880 H (0-175) pg/mL Assessment and Plan - Assessment and Plan (1) Acute on chronic combined systolic and diastolic congestive heart failure Status: Acute (2) Cardiomyopathy Status: Chronic (3) Atherosclerotic heart disease of [place] coronary artery without angina pectoris Status: Chronic (4) Nonrheumatic aortic valve insufficiency Status: Chronic (5) Essential (primary) hypertension Status: Chronic (6) Mixed hyperlipidemia Status: Chronic (7) Type 2 diabetes mellitus without complications Status: Chronic (8) Chronic kidney disease Status: Chronic - Attestation Attestation Narrative: 05/22/17 07:40 Recommendation After examining the patient I agree with the above assessment. I am involved in the formulation of the patient's plan of care. Hospital Course Summary Disclaimer: The visit summary below is not to be considered part of the above Progress Note.
[2017-05-18] MEDS: BUMETANIDE DRIP 25 MG in RTU-SALINE 100 ML IV SCH (15:41)
--- NOTE | 2017-05-18 17:10 | Echocardiogram ---
DATE OF PROCEDURE May 17, 2017 This is a two-dimensional echo with spectral Doppler, color-flow and M-mode. It was obtained in a patient with congestive heart failure. Left atrium is dilated. Left ventricular end-diastolic dimension is increased. Left ventricular wall thickness increased. Severe global hypokinesia is present with ejection fraction of about 20%-25%. Right atrium is normal. Right ventricle is normal. Aortic root dimension is normal. Mitral valve is morphologically normal with moderate mitral regurgitation. Aortic valve shows fibrocalcific changes with no stenosis. Mild aortic insufficiency is present. Tricuspid valve shows mild tricuspid regurgitation with severe pulmonary hypertension with estimated pulmonary artery systolic pressure of 79. Pulmonary valve shows mild pulmonary insufficiency. There is no pericardial effusion. IMPRESSION 1. Severe global hypokinesia with ejection fraction of about 20%-25%. 2. Left atrial dilation. 3. Left ventricular dilation. 4. Left ventricular hypertrophy. 5. Moderate mitral regurgitation. 6. Aortic sclerosis with mild aortic insufficiency. 7. Mild tricuspid regurgitation with severe pulmonary hypertension with estimated pulmonary artery systolic pressure of 79. 8. Mild pulmonary insufficiency. MTDD
[2017-05-18] MEDS: ENOXAPARIN 40 MG/0.4 ML INJECTION SQ SCH (17:42)
[2017-05-18] MEDS: CARVEDILOL 12.5 MG PO SCH (17:43)
[2017-05-18] MEDS: AMLODIPINE 5 MG TABLET PO SCH (19:06)
[2017-05-18] MEDS: Oxycodone/Acetaminophen 5/325 1 TAB PO PRN (22:16)
[2017-05-19] MEDS: OMEPRAZOLE 20 MG CAPSULE PO SCH (06:39)
[2017-05-19] MEDS: CARVEDILOL 12.5 MG PO SCH ×2 (09:15→18:30)
[2017-05-19] MEDS: AMLODIPINE 5 MG TABLET PO SCH (09:16)
[2017-05-19] MEDS: ALLOPURINOL 300 MG PO SCH (09:16)
[2017-05-19] MEDS: CLONIDINE 0.1 MG PO SCH ×2 (09:17→21:42)
[2017-05-19] MEDS: CALCITRIOL 0.25 MCG PO SCH (09:17)
[2017-05-19] MEDS: ASPIRIN 325 MG PO SCH (09:17)
[2017-05-19] MEDS: POM LISINOPRIL 40 MG TABLET PO SCH (09:18)
[2017-05-19] MEDS: MINOCYCLINE 100 MG CAPSULE PO SCH ×2 (09:19→21:42)
[2017-05-19] MEDS: MULTI-VITAMIN + MINERAL TABLET PO SCH (09:19)
[2017-05-19] MEDS: ENOXAPARIN 40 MG/0.4 ML INJECTION SQ SCH (10:10)
--- NOTE | 2017-05-19 15:58 | Cardiology Progress Note ---
<Kristine Daigle - Last Filed: 05/19/17 15:52> Subjective Principal diagnosis: Acute on chronic systolic and diastolic heart failure Interval history: Sendy is seen in follow up today for Acute on chronic systolic and diastolic heart failure, which she was admitted from the clinic for IV diuresis yesterday. She remains on Bumex drip and has conversational dyspnea. She denies chest pain or pressure, palpitations, lightheadedness. Exam Vital signs: Temperature 96.4 F L 05/19/17 14:20 Pulse Rate 65 05/19/17 14:20 Respiratory Rate 16 05/19/17 14:20 Blood Pressure 156/77 H 05/19/17 14:20 Pulse Oximetry 97 05/19/17 14:20 - Constitutional no acute distress, well developed, obese - Routine HEENT Exam Head: Present: atraumatic Eye: Present: EOMI ENT: Present: mucous membranes moist - Routine Respiratory Exam Present: CTA bilaterally. Absent: accessory muscle use, patient mechanically ventilated - Routine Cardiovascular Exam Present: RRR - Routine Abdominal Exam Present: soft, normoactive bowel sounds - Routine Extremities Exam Present: edema (mild) - Routine Neurological Exam Present: alert, oriented X3 Results 05/18/17 04:43 05/18/17 04:43 Cardiac Enzymes 05/19/17 Range/Units 04:25 Troponin I < 0.012 (0-0.12) ng/ml Intake and Output 05/19/17 05/19/17 05/19/17 06:59 14:59 22:59 Intake Total 1605 / 1605 Output Total 1600 / 1600 Balance -1600 / -1600 1605 / 1605 Intake: Oral 1605 / 1605 Output: Urine 1600 / 1600 Other: Urine Appearance Clear Urine Color Yellow Urine Odor Normal Weight 110.5 kg Patient Weight 05/20/17 06:59 Weight 110.5 kg Assessment and Plan - Assessment and Plan (1) Acute on chronic combined systolic and diastolic congestive heart failure Status: Acute (2) Cardiomyopathy Status: Chronic (3) Atherosclerotic heart disease of [place] coronary artery without angina pectoris Status: Chronic (4) Nonrheumatic aortic valve insufficiency Status: Chronic (5) Essential (primary) hypertension Status: Chronic (6) Mixed hyperlipidemia Status: Chronic (7) Type 2 diabetes mellitus without complications Status: Chronic (8) Chronic kidney disease Status: Chronic Hospital Course Summary Disclaimer: The visit summary below is not to be considered part of the above Progress Note. Hospital Course: 05/19/17 15:55 Bumex gtt stopped. No lab ordered for today. Will start Bumex IV push scheduled once lab resulted. RT consult to eval and tx. Patient reports using CPAP at home. -2,000 fluid balance. Still hypertensive. HR in the 60's. Increase Norvasc to 10mg po daily first dose in am. Additional 5mg po x1 now. <Pedro Narvaez - Last Filed: 05/22/17 07:43> Exam Vital signs: Temperature 96.3 F L 05/21/17 10:27 Pulse Rate 67 05/21/17 10:31 Respiratory Rate 17 05/21/17 10:27 Blood Pressure 160/87 H 05/21/17 10:31 Pulse Oximetry 97 05/21/17 10:27 Results 05/21/17 04:31 05/21/17 04:31 Cardiac Enzymes 05/21/17 Range/Units 04:29 B-Natriuretic Peptide 2880 H (0-175) pg/mL Coagulation 05/21/17 Range/Units 04:29 B-Natriuretic Peptide 2880 H (0-175) pg/mL Assessment and Plan - Assessment and Plan (1) Acute on chronic combined systolic and diastolic congestive heart failure Status: Acute (2) Cardiomyopathy Status: Chronic (3) Atherosclerotic heart disease of [place] coronary artery without angina pectoris Status: Chronic (4) Nonrheumatic aortic valve insufficiency Status: Chronic (5) Essential (primary) hypertension Status: Chronic (6) Mixed hyperlipidemia Status: Chronic (7) Type 2 diabetes mellitus without complications Status: Chronic (8) Chronic kidney disease Status: Chronic - Attestation Attestation Narrative: 05/22/17 07:43 Recommendation After examining the patient I agree with the above assessment. I am involved in the formulation of the patient's plan of care. Hospital Course Summary Disclaimer: The visit summary below is not to be considered part of the above Progress Note.
[2017-05-19] MEDS: POM INSULIN ASPART 100unit/ml INJECTION SQ SCH ×2 (16:08→17:11)
[2017-05-19] MEDS ORDERED: AMLODIPINE 5 MG TABLET PO ONE (17:15)
[2017-05-19] MEDS: INSULIN DETEMIR 100 UNIT/ML SQ SCH (21:42)
[2017-05-19] MEDS: Oxycodone/Acetaminophen 5/325 1 TAB PO PRN (21:46)
[2017-05-20] MEDS: OMEPRAZOLE 20 MG CAPSULE PO SCH (06:04)
[2017-05-20] MEDS: ENOXAPARIN 40 MG/0.4 ML INJECTION SQ SCH (08:33)
[2017-05-20] MEDS: MINOCYCLINE 100 MG CAPSULE PO SCH ×2 (08:34→21:50)
[2017-05-20] MEDS: ASPIRIN 325 MG PO SCH (08:34)
[2017-05-20] MEDS: MULTI-VITAMIN + MINERAL TABLET PO SCH (08:34)
[2017-05-20] MEDS: CARVEDILOL 12.5 MG PO SCH ×2 (08:36→17:37)
[2017-05-20] MEDS: ALLOPURINOL 300 MG PO SCH (08:37)
[2017-05-20] MEDS: CLONIDINE 0.1 MG PO SCH ×2 (08:38→21:50)
[2017-05-20] MEDS: CALCITRIOL 0.25 MCG PO SCH (08:38)
[2017-05-20] MEDS: POM LISINOPRIL 40 MG TABLET PO SCH (08:39)
[2017-05-20] MEDS: AMLODIPINE 10 MG TABLET PO SCH (09:30)
--- NOTE | 2017-05-20 10:22 | Cardiology Progress Note ---
<Kristine Daigle - Last Filed: 05/20/17 10:30> Subjective Principal diagnosis: Acute on chronic systolic and diastolic heart failure Interval history: Sendy is seen in follow up today for Acute on chronic systolic and diastolic heart failure, which she was admitted from the clinic for IV diuresis yesterday. She remains on Bumex drip and has conversational dyspnea. She denies chest pain or pressure, palpitations, lightheadedness. Exam Vital signs: Temperature 97.7 F 05/20/17 07:38 Pulse Rate 61 05/20/17 07:38 Respiratory Rate 18 05/20/17 07:38 Blood Pressure 155/71 H 05/20/17 07:38 Pulse Oximetry 95 05/20/17 07:38 - Constitutional no acute distress - Routine HEENT Exam Head: Present: atraumatic Eye: Present: EOMI ENT: Present: mucous membranes moist - Routine Neck Exam Absent: JVD - Routine Respiratory Exam Present: CTA bilaterally (air exchange throughout. Cpap over night) - Routine Cardiovascular Exam Present: RRR - Routine Abdominal Exam Present: soft, normoactive bowel sounds - Routine Extremities Exam Present: edema (mild; tender to touch feet ankles) - Routine Back/Spine/Pelvis Exam Back/Spine: Absent: CVA tenderness, paraspinal tenderness - Routine Skin Exam Present: intact, warm - Routine Neurological Exam Present: alert, oriented X3 - Routine Psychiatric Exam Present: normal affect Results 05/20/17 04:35 05/20/17 04:35 CBC 05/19/17 05/20/17 Range/Units 15:49 04:35 WBC 5.5 3.7 L (4.5-11.0) T/MM3 RBC 4.16 3.91 L (4.00-5.20) M/MM3 Hgb 12.6 11.8 L (12-16) GM/DL Hct 39.4 36.9 (36-46) % Plt Count 254 240 (130-400) T/MM3 Comprehensive Metabolic Panel 05/19/17 05/20/17 Range/Units 15:49 04:35 Sodium 141 142 (134-144) MEQ/L Potassium 3.8 D 3.2 L (3.6-5) MEQ/L Chloride 104 105 (98-107) MEQ/L Carbon Dioxide 29 29 (22-30) MEQ/L BUN 27.0 H 25.0 H (7-17) MG/DL Creatinine 1.2 1.1 (0.7-1.2) MG/DL Glucose 316 H 75 (65-110) MG/DL Calcium 9.3 9.0 (8.4-10.2) MG/DL Intake and Output 05/19/17 05/20/17 05/20/17 22:59 06:59 14:59 Intake Total 400 / 400 250 / 250 Output Total 800 / 800 700 / 700 450 / 450 Balance -400 / -400 -700 / -700 -200 / -200 Intake: Oral 400 / 400 250 / 250 Output: Urine 800 / 800 700 / 700 450 / 450 Other: Urine Appearance Clear Clear Clear Urine Color Yellow Yellow Straw Urine Odor Normal Normal Weight 110.7 kg Patient Weight 05/21/17 06:59 Weight 110.7 kg Assessment and Plan - Assessment and Plan (1) Acute on chronic combined systolic and diastolic congestive heart failure Status: Acute (2) Cardiomyopathy Status: Chronic (3) Atherosclerotic heart disease of [place] coronary artery without angina pectoris Status: Chronic (4) Nonrheumatic aortic valve insufficiency Status: Chronic (5) Essential (primary) hypertension Status: Chronic (6) Mixed hyperlipidemia Status: Chronic (7) Type 2 diabetes mellitus without complications Status: Chronic (8) Chronic kidney disease Status: Chronic Hospital Course Summary Disclaimer: The visit summary below is not to be considered part of the above Progress Note. Hospital Course: 05/19/17 15:55 Bumex gtt stopped. No lab ordered for today. Will start Bumex IV push scheduled once lab resulted. RT consult to eval and tx. Patient reports using CPAP at home. -2,000 fluid balance. Still hypertensive. HR in the 60's. Increase Norvasc to 10mg po daily first dose in am. Additional 5mg po x1 now. 05/20/17 10:22 Continue Bumex 2mg IV q6hr. Carpenter Prototype stable 1.1. Lung sounds improved. Air exchange now throughout. CPAP overnight may have benefited. C/O parking at the store and unable to make it to the door without having to sit to recover air. Requests Handicap sticker to park shorter to the door. C/O painful varicose veins. JOY guerra ordered to assist with LE edema and varicose. Will refer handicap sticker for vehicle to office assist Sunday05-21-17. SBP still 140's-150's. Order increase vitals to q4 to have more clear picture of trending. Keep clonidine, norvasc 10, and coreg. HR 60's. Cont Enoxaprin for DVT PPX 05/20/17 10:30 <Pedro Narvaez - Last Filed: 05/22/17 07:45> Exam Vital signs: Temperature 96.3 F L 05/21/17 10:27 Pulse Rate 67 05/21/17 10:31 Respiratory Rate 17 05/21/17 10:27 Blood Pressure 160/87 H 05/21/17 10:31 Pulse Oximetry 97 05/21/17 10:27 Results 05/21/17 04:31 05/21/17 04:31 Cardiac Enzymes 05/21/17 Range/Units 04:29 B-Natriuretic Peptide 2880 H (0-175) pg/mL Coagulation 05/21/17 Range/Units 04:29 B-Natriuretic Peptide 2880 H (0-175) pg/mL Assessment and Plan - Assessment and Plan (1) Acute on chronic combined systolic and diastolic congestive heart failure Status: Acute (2) Cardiomyopathy Status: Chronic (3) Atherosclerotic heart disease of [place] coronary artery without angina pectoris Status: Chronic (4) Nonrheumatic aortic valve insufficiency Status: Chronic (5) Essential (primary) hypertension Status: Chronic (6) Mixed hyperlipidemia Status: Chronic (7) Type 2 diabetes mellitus without complications Status: Chronic (8) Chronic kidney disease Status: Chronic - Attestation Attestation Narrative: 05/22/17 07:44 Recommendation After examining the patient I agree with the above assessment. I am involved in the formulation of the patient's plan of care. Hospital Course Summary Disclaimer: The visit summary below is not to be considered part of the above Progress Note.
[2017-05-20] MEDS: POM INSULIN ASPART 100unit/ml INJECTION SQ SCH ×2 (12:40→17:35)
[2017-05-20] MEDS ORDERED: AMLODIPINE 5 MG TABLET PO ONE (16:00)
[2017-05-20] MEDS: INSULIN DETEMIR 100 UNIT/ML SQ SCH (21:49)
[2017-05-20] MEDS: BUMETANIDE DRIP 25 MG in RTU-SALINE 100 ML IV SCH (22:15)
[2017-05-21] MEDS: OMEPRAZOLE 20 MG CAPSULE PO SCH (06:27)
[2017-05-21] MEDS: MINOCYCLINE 100 MG CAPSULE PO SCH (08:26)
[2017-05-21] MEDS: AMLODIPINE 10 MG TABLET PO SCH (08:26)
[2017-05-21] MEDS: ALLOPURINOL 300 MG PO SCH (08:26)
[2017-05-21] MEDS: MULTI-VITAMIN + MINERAL TABLET PO SCH (08:26)
[2017-05-21] MEDS: ASPIRIN 325 MG PO SCH (08:26)
[2017-05-21] MEDS: CLONIDINE 0.1 MG PO SCH (08:28)
[2017-05-21] MEDS: CARVEDILOL 12.5 MG PO SCH (08:28)
[2017-05-21] MEDS: ENOXAPARIN 40 MG/0.4 ML INJECTION SQ SCH (08:28)
[2017-05-21] MEDS: CALCITRIOL 0.25 MCG PO SCH (08:29)
[2017-05-21] MEDS: POM LISINOPRIL 40 MG TABLET PO SCH (08:30)
--- NOTE | 2017-05-21 08:42 | XRay Report ---
EXAM: XR chest 1V 0621 hours COMPARISON: 05/18/2017. On 2016. 08/17/2009. HISTORY: Pulmonary Edema . FINDINGS: The heart is enlarged. The pulmonary vascularity appears unremarkable. There is mild increase in interstitial markings. Ovoid lucency at the medial left lung apex is likely represents an emphysematous bleb or bulla. This is similar to prior exams. There is no evidence for pleural effusion. There is no evidence for a pneumothorax. No osseous abnormalities are identified. IMPRESSION: 1. Cardiomegaly. 2. Improving increased interstitial markings which may represent improving congestive change. [place] [facility] [place]
[2017-05-21 10:29] VITALS: RESP 17; TEMP 96.3; O2SAT 97
[2017-05-21 10:34] VITALS: BP 160/87; PULSE 67
[2017-05-21] MEDS: POM INSULIN ASPART 100unit/ml INJECTION SQ SCH (12:34)
[2017-05-22] MEDS ORDERED: BUMETANIDE 1 MG TABLET PO SCH (09:00)
--- NOTE | 2017-07-04 12:09 | Discharge Summary ---
<Edda Richmond - Last Filed: 07/04/17 12:14> Discharge Information Date of admission: 05/18/17 16:25 Anticipated date of discharge: 05/21/17 Attending Physician: Pedro Narvaez MD Primary care physician: Mirna Celis APRN Consults: 05/18/17 15:30 Dietary Consult [CONS] Routine Comment: Reason For Exam: CHF diet teaching - Discharge Diagnosis (1) Acute on chronic combined systolic and diastolic congestive heart failure Status: Chronic (2) Cardiomyopathy Status: Chronic (3) Atherosclerotic heart disease of [place] coronary artery without angina pectoris Status: Chronic (4) Nonrheumatic aortic valve insufficiency Status: Chronic (5) Essential (primary) hypertension Status: Chronic (6) Mixed hyperlipidemia Status: Chronic (7) Type 2 diabetes mellitus without complications Status: Deleted (8) Chronic kidney disease Status: Deleted - Laboratory Labs: 05/21/17 04:31 05/21/17 04:31 History of Present Illness HPI: Sendy is a 62 year old female who is known to Dr. Winchester and seen in Acute on chronic systolic and diastolic heart failure, which she was admitted from the clinic for IV diuresis. She remains on Bumex drip and has conversational dyspnea. She denies chest pain or pressure, palpitations, lightheadedness. Hospital Course This is a general summary of the patient's hospital course. For more details refer to the complete medical record. Hospital course: 05/18/17 Acute on chronic systolic and diastolic heart failure: Continue Bumex drip today at 1mg/hr - replace potassium - monitor renal and electrolytes CM: continue Coreg CAD: continue Aspirin HTN: Suboptimal control - add amlodipine 5mg daily - continue home Clonidine and Lisinopril. 05/19/17 15:55 Bumex gtt stopped. No lab ordered for today. Will start Bumex IV push scheduled once lab resulted. RT consult to eval and tx. Patient reports using CPAP at home. -2,000 fluid balance. Still hypertensive. HR in the 60's. Increase Norvasc to 10mg po daily first dose in am. Additional 5mg po x1 now. 05/20/17 Continue Bumex 2mg IV q6hr. 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 Lung sounds improved. Air exchange now throughout. CPAP overnight may have benefited. C/O parking at the store and unable to make it to the door without having to sit to recover air. Requests Handicap sticker to park shorter to the door. C/O painful varicose veins. JOY guerra ordered to assist with LE edema and varicose. Will refer handicap sticker for vehicle to office assist Sunday05-21-17. SBP still 140's-150's. Order increase vitals to q4 to have more clear picture of trending. Keep clonidine, norvasc 10, and coreg. HR 60's. Cont Enoxaprin for DVT PPX Time spent with patient: 25 - 35 minutes Exam Vital signs: Temperature 96.3 F L 05/21/17 10:27 Pulse Rate 67 05/21/17 10:31 Respiratory Rate 17 05/21/17 10:27 Blood Pressure 160/87 H 05/21/17 10:31 Pulse Oximetry 97 05/21/17 10:27 - Constitutional no acute distress, morbidly obese, cooperative - Routine HEENT Exam Head: Present: normocephalic ENT: Present: mucous membranes moist - Routine Neck Exam Absent: JVD, carotid bruit - Routine Chest/Breast/Axilla Exam Chest wall: Absent: tenderness - Routine Respiratory Exam Present: CTA bilaterally, diminished air movement - Routine Cardiovascular Exam Present: RRR - Routine Extremities Exam Present: edema - Routine Skin Exam Present: intact, dry, warm - Routine Neurological Exam Present: alert, oriented X3 - Routine Psychiatric Exam Present: normal affect, normal thought process Results 05/21/17 04:31 05/21/17 04:31 05/20/17 04:35 05/20/17 04:35 CBC 05/19/17 05/20/17 Range/Units 15:49 04:35 WBC 5.5 3.7 L (4.5-11.0) T/MM3 RBC 4.16 3.91 L (4.00-5.20) M/MM3 Hgb 12.6 11.8 L (12-16) GM/DL Hct 39.4 36.9 (36-46) % Plt Count 254 240 (130-400) T/MM3 Comprehensive Metabolic Panel 05/19/17 05/20/17 Range/Units 15:49 04:35 Sodium 141 142 (134-144) MEQ/L Potassium 3.8 D 3.2 L (3.6-5) MEQ/L Chloride 104 105 (98-107) MEQ/L Carbon Dioxide 29 29 (22-30) MEQ/L BUN 27.0 H 25.0 H (7-17) MG/DL Creatinine 1.2 1.1 (0.7-1.2) MG/DL Glucose 316 H 75 (65-110) MG/DL Calcium 9.3 9.0 (8.4-10.2) MG/DL Intake and Output 05/19/17 05/20/17 05/20/17 22:59 06:59 14:59 Intake Total 400 / 400 250 / 250 Output Total 800 / 800 700 / 700 450 / 450 Balance -400 / -400 -700 / -700 -200 / -200 Intake: Oral 400 / 400 250 / 250 Output: Urine 800 / 800 700 / 700 450 / 450 Other: Urine Appearance Clear Clear Clear Urine Color Yellow Yellow Straw Urine Odor Normal Normal Weight 110.7 kg Patient Weight 05/21/17 06:59 Weight 110.7 kg - Imaging and Cardiology Imaging & Cardiology Narrative: Date of Exam: 05/17/17 Ordering Provider: Edda Richmond APRN Type of Exam(s): XR chest 1V Reason for Exam(s): CHF Indication: CHF PROCEDURE: XR chest 1V: Encounter: Initial Comparison: 11/22/2016 Findings: Bullous emphysema in the left apex. Motion artifact. Increased prominence of the pulmonary vascular markings, worsened from the prior study. No gross pneumothorax or definite effusion. Cardiac silhouette remains severely enlarged. Left pacemaker. Mediastinal contours are stable. Impression: Moderate to severe pulmonary edema, likely due to CHF. Date of Exam: 05/17/17 Type of Exam(s): US echo doppler complete DATE OF PROCEDURE May 17, 2017 This is a two-dimensional echo with spectral Doppler, color-flow and M-mode. It was obtained in a patient with congestive heart failure. Left atrium is dilated. Left ventricular end-diastolic dimension is increased. Left ventricular wall thickness increased. Severe global hypokinesia is present with ejection fraction of about 20%-25%. Right atrium is normal. Right ventricle is normal. Aortic root dimension is normal. Mitral valve is morphologically normal with moderate mitral regurgitation. Aortic valve shows fibrocalcific changes with no stenosis. Mild aortic insufficiency is present. Tricuspid valve shows mild tricuspid regurgitation with severe pulmonary hypertension with estimated pulmonary artery systolic pressure of 79. Pulmonary valve shows mild pulmonary insufficiency. There is no pericardial effusion. IMPRESSION 1. Severe global hypokinesia with ejection fraction of about 20%-25%. 2. Left atrial dilation. 3. Left ventricular dilation. 4. Left ventricular hypertrophy. 5. Moderate mitral regurgitation. 6. Aortic sclerosis with mild aortic insufficiency. 7. Mild tricuspid regurgitation with severe pulmonary hypertension with estimated pulmonary artery systolic pressure of 79. 8. Mild pulmonary insufficiency. Date of Exam: 05/21/17 Ordering Provider: Kristine Daigle APRN Type of Exam(s): XR chest 1V Reason for Exam(s): Pulmonary Edema EXAM: XR chest 1V 0621 hours COMPARISON: 05/18/2017. On 2016. 08/17/2009. HISTORY: Pulmonary Edema . FINDINGS: The heart is enlarged. The pulmonary vascularity appears unremarkable. There is mild increase in interstitial markings. Ovoid lucency at the medial left lung apex is likely represents an emphysematous bleb or bulla. This is similar to prior exams. There is no evidence for pleural effusion. There is no evidence for a pneumothorax. No osseous abnormalities are identified. IMPRESSION: 1. Cardiomegaly. 2. Improving increased interstitial markings which may represent improving congestive change. LOCATION OF DICTATION: [facility] – [place] - EKG Interpretation EKG: sinus rhythm (occasional PVCs) Discharge Plan - Med Rec/Dispo Referrals/Follow Up: Pedro Narvaez MD [Physician] - 2 Weeks (APPOINTMENT ON 06/13 AT 9:40.) Neel Instructions: [facility] [place] Congestive Heart Failure Prescriptions: New Amlodipine [Norvasc] 10 mg PO DAILY #30 tab Bumetanide Tab [Bumex Tab] 3 mg PO [id number] #180 tab Potassium Chloride [K-Dur] 20 meq PO BIDWM #60 tab Continue Aspirin 325 mg PO DAILY #0 tab cloNIDine HCl [Clonidine HCl] 1 tab PO BID #0 tab Calcitriol [Rocaltrol] 1 cap PO DAILY #0 cap Allopurinol 1 tab PO DAILY #0 tab Albuterol Sulfate [Proair Hfa] 2 puff INH Q4H PRN #0 inhaler PRN Reason: ASTHMA Lisinopril 40 mg PO DAILY #0 tab Minocycline HCl [Minocin] 100 mg PO BID 7 Days #14 cap No Action oxycodone-acetaminophen 5 mg-325 mg tablet 1 tab PO Q6H Novolog PenFill (insulin aspart) 100 unit/mL subcutaneous cartridge See Label Instructions .ROUTE .COMPLEX #0 cholecalciferol (vitamin D3) 2,000 unit capsule 2,000 unit PO BID Aldactone (spironolactone) 25 mg tablet 25 mg PO DAILY labetalol 300 mg tablet 300 mg PO BID Glucophage (metformin) 1,000 mg tablet 1,000 mg PO BID lovastatin 40 mg tablet 80 mg PO DAILY tab estradiol 10 mcg vaginal tablet 10 mcg VG 2XW isosorbide mononitrate ER 30 mg tablet,extended release 24 hr 30 mg PO QAM Levemir (insulin detemir) 100 unit/mL 35 unit SQ HS #0 vial Tricor (fenofibrate nanocrystallized) 145 mg tablet 145 mg PO DAILY - Disposition 01 Discharged Home, Self-Care - Dismissal Complete Discharge Instructions are:: Complete <Pedro Narvaez - Last Filed: 07/09/17 14:49> Discharge Information Date of admission: 05/18/17 16:25 Attending Physician: Pedro Narvaez MD Primary care physician: Mirna Celis APRN Consults: 05/18/17 15:30 Dietary Consult [CONS] Routine Comment: Reason For Exam: CHF diet teaching - Discharge Diagnosis (1) Acute on chronic combined systolic and diastolic congestive heart failure Status: Chronic (2) Cardiomyopathy Status: Chronic (3) Atherosclerotic heart disease of [place] coronary artery without angina pectoris Status: Chronic (4) Nonrheumatic aortic valve insufficiency Status: Chronic (5) Essential (primary) hypertension Status: Chronic (6) Mixed hyperlipidemia Status: Chronic (7) Type 2 diabetes mellitus without complications Status: Deleted (8) Chronic kidney disease Status: Deleted - Laboratory Labs: 05/21/17 04:31 05/21/17 04:31 Hospital Course This is a general summary of the patient's hospital course. For more details refer to the complete medical record. Exam Vital signs: Temperature 96.3 F L 05/21/17 10:27 Pulse Rate 67 05/21/17 10:31 Respiratory Rate 17 05/21/17 10:27 Blood Pressure 160/87 H 05/21/17 10:31 Pulse Oximetry 97 05/21/17 10:27 Results 05/21/17 04:31 05/21/17 04:31 Attestation Narriative - Attestation Attestation Narrative: 07/09/17 14:49 Recommendation After examining the patient I agree with the above assessment. I am involved in the formulation of the patient's plan of care.
== END 2017-05-21 14:25 | disposition home or self-care (01) | DRG 291 ==
LOC: MED
PROVIDERS: ADMIT Internal Medicine Cardiovascular Disease; ATTEND Internal Medicine Cardiovascular Disease